=== PATIENT | female | born 1995 | race Two or more races ===

== ENCOUNTER 2021-06-10 13:50 | Inpatient (IN) | payer OTHER ==
[~2021-06-10] VITALS: Ht 154.9 cm; Wt 70.8 kg
[2021-06-23] MEDS ORDERED: PRENATABS RX T1 EACH PO (09:37)
== END 2021-06-25 13:20 | disposition home or self-care (01) | DRG 807 ==
LOC: SURH 06-17 13:39 → LDR 06-23 09:22 → OB/GYN 06-23 14:01 → SURG-SUITE 06-24 09:29
PROVIDERS: ADMIT Obstetrics & Gynecology; ATTEND Obstetrics & Gynecology
PROC: 10D07Z6 Extraction of Products of Conception, Vacuum, Via Natural or Artificial Opening (ICD-10-PCS; principal; 2021-06-23)
PROC: 4A1HXCZ Monitoring of Products of Conception, Cardiac Rate, External Approach (ICD-10-PCS; 2021-06-23)
PROC: 0W8NXZZ Division of Female Perineum, External Approach (ICD-10-PCS; 2021-06-23)
DX: O66.5 Attempted application of vacuum extractor and forceps (principal); Z37.0 Single live birth; Z3A.39 39 weeks gestation of pregnancy; Z20.822 Contact with and (suspected) exposure to COVID-19